=== PATIENT | female | born 1970 | race Caucasian/White ===

== ENCOUNTER → 2020-12-02 | Outpatient (CLI) | payer BC | LOC: EXRD 10:40 | DX: M25.511 Pain in right shoulder (principal) | CPT/HCPCS: 73030 ==

== ENCOUNTER → 2022-08-13 | Outpatient (CLI) | payer BC | LOC: US 10:21 | DX: H34.219 Partial retinal artery occlusion, unspecified eye (principal) | CPT/HCPCS: 93880 ==